=== PATIENT | female | born 1950 | race Caucasian/White ===

== ENCOUNTER 2022-03-05 16:25 | Outpatient (CLI) | payer MEDICARE, BC, SELFPAY ==
--- NOTE | 2022-03-05 16:50 | XR_ITS ---
WS: [id number] Cervical spine, 3 views, 03/05/2022 Clinical Data: M54.2 - Cervicalgia Comparison: None. Findings: No compression fractures are seen. The disc heights are normal. There is no prevertebral so ft tissue swelling. The odontoid is unremarkable. The soft tissues of the neck and the lung apices ar e normal. XR/XR cervical spine 3V* [id number] Impression: Negative cervical spine.
== END 2022-03-05 16:26 | disposition home or self-care (01) ==
PROVIDERS: PCP Nurse Practitioner Family; Visit Provider Nurse Practitioner Family
DX: M54.2 Cervicalgia (principal)
CPT/HCPCS: 72040

== ENCOUNTER → 2022-03-13 15:00 | Outpatient (BNVA) | payer MEDICARE, BC, SELFPAY | PROVIDERS: PCP Nurse Practitioner Family; Visit Provider Nurse Practitioner Family | DX: T14.8XXA Other injury of unspecified body region, initial encounter (principal); W57.XXXA Bitten or stung by nonvenomous insect and other nonvenomous arthropods, initial encounter | CPT/HCPCS: 86618; 86666; 86757 ==

== ENCOUNTER → 2022-04-12 09:46 | Outpatient (BNVA) | payer MEDICARE, BC, SELFPAY | PROVIDERS: PCP Nurse Practitioner Family; Referring Provider Nurse Practitioner Family; Visit Provider Student in an Organized Health Care Education/Training Program | DX: M19.011 Primary osteoarthritis, right shoulder (principal); M19.012 Primary osteoarthritis, left shoulder; M75.41 Impingement syndrome of right shoulder; M75.42 Impingement syndrome of left shoulder | CPT/HCPCS: 20610; 99204; J3301 ==

== ENCOUNTER → 2022-06-28 13:57 | Outpatient (BNVA) | payer MEDICARE, BC, SELFPAY | PROVIDERS: PCP Nurse Practitioner Family; Visit Provider Student in an Organized Health Care Education/Training Program | DX: M75.42 Impingement syndrome of left shoulder (principal); M75.41 Impingement syndrome of right shoulder; M19.011 Primary osteoarthritis, right shoulder; M19.012 Primary osteoarthritis, left shoulder | CPT/HCPCS: 99213 ==

== ENCOUNTER → 2022-08-30 10:42 | Outpatient (BNVA) | payer MEDICARE, BC, SELFPAY | PROVIDERS: PCP Nurse Practitioner Family; Visit Provider Nurse Practitioner Family | DX: E53.8 Deficiency of other specified B group vitamins (principal); E78.5 Hyperlipidemia, unspecified; E11.9 Type 2 diabetes mellitus without complications; D64.9 Anemia, unspecified | CPT/HCPCS: 80053; 80061; 82607; 83036; 85025 ==

== ENCOUNTER 2022-11-18 15:13 | Outpatient (CLI) | payer MEDICARE, BC, SELFPAY ==
--- NOTE | 2022-11-18 15:30 | US_ITS ---
WS: [id number] RENAL ULTRASOUND HISTORY: I10 - Essential (primary) hypertension COMPARISON: None available. TECHNIQUE: 2-D and color Doppler imaging of the kidney submitted. Right kidney: 10.2 cm x 5.1 cm x 5.0 cm. Cortex: 1.1 cm Normal echogenicity with no hydronephrosis or mass. Left kidney: 10.5 cm x 4.2 cm x 5.5 cm. Cortex: 1.1 cm Normal echogenicity with no hydronephrosis or mass. Aorta: Normal. Urinary Bladder: Normal distention. US/US renal BI* [id number] IMPRESSION: Normal renal ultrasound.
== END 2022-11-18 15:14 | disposition home or self-care (01) ==
PROVIDERS: PCP Nurse Practitioner Family; Visit Provider Nurse Practitioner Family
DX: I10 Essential (primary) hypertension (principal)
CPT/HCPCS: 76770

== ENCOUNTER → 2022-12-31 13:45 | Outpatient (BNVA) | payer MEDICARE, BC, SELFPAY | PROVIDERS: PCP Nurse Practitioner Family; Visit Provider Internal Medicine Cardiovascular Disease | DX: R79.89 Other specified abnormal findings of blood chemistry (principal); I10 Essential (primary) hypertension; E11.9 Type 2 diabetes mellitus without complications; Z79.84 Long term (current) use of oral hypoglycemic drugs | CPT/HCPCS: 99203 ==

== ENCOUNTER → 2023-01-03 09:04 | Outpatient (BNVA) | payer MEDICARE, BC, SELFPAY | PROVIDERS: PCP Nurse Practitioner Family; Visit Provider Nurse Practitioner Family | DX: R53.83 Other fatigue (principal); I10 Essential (primary) hypertension; E11.9 Type 2 diabetes mellitus without complications | CPT/HCPCS: 80053; 80061; 83036; 84443; 84481 ==

== ENCOUNTER 2023-01-31 09:14 | Outpatient (CLI) | payer MEDICARE, BC, SELFPAY ==
--- NOTE | 2023-01-31 09:20 | MM_ITS ---
WS: [id number] BILATERAL SCREENING DIGITAL TOMOSYNTHESIS MAMMOGRAM WITH CAD HISTORY: SCREEN COMPARISON: 10/15/2017 Bilateral CC and MLO views with tomosynthesis and synthetic mammography submitted. Computer aided det ection analyzed. Breast composition: There are scattered areas of fibroglandular density. No suspicious masses, microc alcifications or architectural distortion. Benign calcifications in each breast. Stable 5 mm mass in the upper outer quadrant of the LEFT breast. Probably representing a lymph node. IMPRESSION: MM/[place] [id number] BI-RADS: 2-Benign FOLLOW UP: 1 Year Follow-up
== END 2023-01-31 09:15 | disposition home or self-care (01) ==
LOC: RAD 09:15
PROVIDERS: PCP Nurse Practitioner Family; Visit Provider Nurse Practitioner Family
DX: Z12.31 Encounter for screening mammogram for malignant neoplasm of breast (principal)
CPT/HCPCS: 77063; 77067

== ENCOUNTER → 2023-02-07 08:59 | Outpatient (BNVA) | payer MEDICARE, BC, SELFPAY | PROVIDERS: PCP Nurse Practitioner Family; Visit Provider Nurse Practitioner Family | DX: N28.9 Disorder of kidney and ureter, unspecified (principal); Z87.448 Personal history of other diseases of urinary system | CPT/HCPCS: 80053 ==

== ENCOUNTER → 2023-03-17 15:54 | Outpatient (BNVA) | payer MEDICARE, BC, SELFPAY | PROVIDERS: PCP Nurse Practitioner Family; Visit Provider Nurse Practitioner Family | DX: R94.4 Abnormal results of kidney function studies (principal) | CPT/HCPCS: 80053 ==

== ENCOUNTER → 2023-04-14 13:08 | Outpatient (BNVA) | payer MEDICARE, BC, SELFPAY | PROVIDERS: PCP Nurse Practitioner Family; Visit Provider Internal Medicine Cardiovascular Disease | DX: I10 Essential (primary) hypertension (principal); F33.8 Other recurrent depressive disorders; E11.9 Type 2 diabetes mellitus without complications; Z79.84 Long term (current) use of oral hypoglycemic drugs | CPT/HCPCS: 99213 ==

== ENCOUNTER → 2023-04-18 09:17 | Outpatient (BNVA) | payer MEDICARE, BC, SELFPAY | PROVIDERS: PCP Nurse Practitioner Family; Visit Provider Nurse Practitioner Family | DX: E11.9 Type 2 diabetes mellitus without complications (principal); R53.83 Other fatigue; K21.9 Gastro-esophageal reflux disease without esophagitis | CPT/HCPCS: 80061; 83036 ==

== ENCOUNTER → 2023-07-28 17:08 | Outpatient (BNVA) | payer MEDICARE, BC, SELFPAY | PROVIDERS: PCP Nurse Practitioner Family; Visit Provider Nurse Practitioner Family | DX: E11.9 Type 2 diabetes mellitus without complications (principal); I10 Essential (primary) hypertension | CPT/HCPCS: 80053; 83036 ==

== ENCOUNTER 2023-08-08 07:39 | Outpatient (CLI) | payer MEDICARE, BC, SELFPAY ==
--- NOTE | 2023-08-08 07:42 | USCV_ITS ---
Sarah Dutton Age: 73 Gender: F : 1950 Exam Date: 08/08/2023 08:03 Ordering Phys: Gavin Boyce MD Technologist: TRIPP Exam Location: [facility] [place]_ Indication: HTN Aortic Velocity @ SMA (cm/s) 95.1 RIGHT KIDNEY LEFT KIDNEY Velocity (cm/s) Velocity (cm/s) Sys/Stafford Sys/Stafford Resistive Index Resistive Index 99.8 / 27.4 Proximal Renal Artery 152.8 / 46.7 93.2 / 31.8 Mid Renal Artery 200.7 / 48.7 93.2 / 29.6 Distal Renal Artery 99.4 / 25.3 93.2 / 28.5 Hilar 84.7 / 22.0 48.0 / 16.6 Upper Pole 38.3 / 11.4 49.5 / 11.2 Mid Pole 38.4 / 9.2 37.8 / 12.6 Lower Pole 28.5 / 9.9 1.00 Renal Aortic Ratio 2.10 Accleration Time (sec) 294.40 Hilar 369.10 251.80 Upper Pole 168.00 194.40 Mid Pole 147.70 149.40 Lower Pole 77.80 9.7 Kidney Length (cm) 9.5 FINDINGS No comparison. Normal size kidneys with mild cortical thinning.no evidence of abdominal aortic aneurysm. There is no evidence of hemodynamically significant right renal artery stenosis. There is no evidence of hemodynamically significant left renal artery stenosis. CONCLUSIONS No sonographic evidence of hemodynamically significant renal artery stenosis bilaterally. Dr. Jo Campbell DO (Electronically Signed) Final Date: 08 August 2023 08:42 S
== END 2023-08-08 07:40 | disposition home or self-care (01) ==
LOC: RAD 07:39
PROVIDERS: PCP Nurse Practitioner Family; Visit Provider Internal Medicine
DX: I12.9 Hypertensive chronic kidney disease with stage 1 through stage 4 chronic kidney disease, or unspecified chronic kidney disease (principal); N18.30 Chronic kidney disease, stage 3 unspecified; E11.22 Type 2 diabetes mellitus with diabetic chronic kidney disease
CPT/HCPCS: 93975

== ENCOUNTER → 2023-08-26 14:31 | Outpatient (BNVA) | payer MEDICARE, BC, SELFPAY | PROVIDERS: PCP Nurse Practitioner Family; Visit Provider Nurse Practitioner Family | DX: E87.1 Hypo-osmolality and hyponatremia (principal) | CPT/HCPCS: 80053 ==

== ENCOUNTER → 2023-10-10 10:51 | Outpatient (BNVA) | payer MEDICARE, BC, SELFPAY | PROVIDERS: PCP Nurse Practitioner Family; Visit Provider Podiatrist Foot & Ankle Surgery | DX: Q82.8 Other specified congenital malformations of skin; E11.9 Type 2 diabetes mellitus without complications | CPT/HCPCS: 17110; 99203 ==

== ENCOUNTER → 2023-10-13 11:49 | Outpatient (BNVA) | payer MEDICARE, BC, SELFPAY | PROVIDERS: PCP Nurse Practitioner Family; Visit Provider Internal Medicine Cardiovascular Disease | DX: I10 Essential (primary) hypertension (principal); I65.22 Occlusion and stenosis of left carotid artery; E11.9 Type 2 diabetes mellitus without complications; Z87.891 Personal history of nicotine dependence; Z79.84 Long term (current) use of oral hypoglycemic drugs | CPT/HCPCS: 99213 ==

== ENCOUNTER → 2023-10-24 09:45 | Outpatient (BNVA) | payer MEDICARE, BC, SELFPAY | PROVIDERS: PCP Nurse Practitioner Family; Visit Provider Nurse Practitioner Family | DX: D48.5 Neoplasm of uncertain behavior of skin (principal); L57.0 Actinic keratosis; L73.8 Other specified follicular disorders; L82.1 Other seborrheic keratosis; L81.4 Other melanin hyperpigmentation; L57.8 Other skin changes due to chronic exposure to nonionizing radiation | CPT/HCPCS: 11102; 17000; 99203 ==

== ENCOUNTER → 2023-12-05 11:29 | Outpatient (BNVA) | payer MEDICARE, BC, SELFPAY | PROVIDERS: PCP Nurse Practitioner Family; Visit Provider Nurse Practitioner Family | DX: I10 Essential (primary) hypertension (principal) | CPT/HCPCS: 80053; 84439; 84443 ==

== ENCOUNTER → 2024-02-24 15:37 | Outpatient (BNVA) | payer MEDICARE, BC, SELFPAY | PROVIDERS: PCP Nurse Practitioner Family; Visit Provider Nurse Practitioner Family | DX: I10 Essential (primary) hypertension (principal) | CPT/HCPCS: 93005 ==

== ENCOUNTER → 2024-02-26 08:33 | Outpatient (BNVA) | payer MEDICARE, BC, SELFPAY | PROVIDERS: PCP Nurse Practitioner Family; Visit Provider Nurse Practitioner Family | DX: I10 Essential (primary) hypertension (principal); Z87.891 Personal history of nicotine dependence | CPT/HCPCS: 99213 ==

== ENCOUNTER → 2024-03-12 08:28 | Outpatient (BNVA) | payer MEDICARE, BC, SELFPAY | PROVIDERS: PCP Nurse Practitioner Family; Visit Provider Nurse Practitioner Family | DX: I10 Essential (primary) hypertension (principal) | CPT/HCPCS: 99213 ==

== ENCOUNTER → 2024-04-12 14:22 | Outpatient (BNVA) | payer MEDICARE, BC, SELFPAY | PROVIDERS: PCP Nurse Practitioner Family; Visit Provider Internal Medicine Cardiovascular Disease | DX: R53.82 Chronic fatigue, unspecified (principal); I95.9 Hypotension, unspecified | CPT/HCPCS: 36415; 82533 ==

== ENCOUNTER → 2024-04-22 08:53 | Outpatient (BNVA) | payer MEDICARE, BC, SELFPAY | PROVIDERS: PCP Nurse Practitioner Family; Visit Provider Nurse Practitioner Family | DX: I10 Essential (primary) hypertension (principal) | CPT/HCPCS: 80053; 80061; 84443; 85025 ==

== ENCOUNTER → 2024-06-24 08:58 | Outpatient (BNVA) | payer MEDICARE, BC, SELFPAY | PROVIDERS: PCP Nurse Practitioner Family; Visit Provider Nurse Practitioner Family | DX: E53.8 Deficiency of other specified B group vitamins (principal); E07.9 Disorder of thyroid, unspecified; R94.4 Abnormal results of kidney function studies | CPT/HCPCS: 80048; 82607; 84439; 84443 ==

== ENCOUNTER → 2024-07-07 08:37 | Outpatient (BNVA) | payer MEDICARE, BC, SELFPAY | PROVIDERS: PCP Nurse Practitioner Family; Visit Provider Internal Medicine Cardiovascular Disease | DX: I10 Essential (primary) hypertension (principal); R94.4 Abnormal results of kidney function studies | CPT/HCPCS: 80048 ==

== ENCOUNTER → 2024-08-20 08:38 | Outpatient (BNVA) | payer MEDICARE, BC, SELFPAY | PROVIDERS: PCP Nurse Practitioner Family; Visit Provider Nurse Practitioner Family | DX: I10 Essential (primary) hypertension (principal); E11.9 Type 2 diabetes mellitus without complications; R53.83 Other fatigue | CPT/HCPCS: 80048; 80053; 80061; 83036; 84443; 85025 ==

== ENCOUNTER → 2024-10-27 14:52 | Outpatient (BNVA) | payer MEDICARE, BC, SELFPAY | PROVIDERS: PCP Nurse Practitioner Family; Visit Provider Internal Medicine Cardiovascular Disease | DX: I10 Essential (primary) hypertension (principal); E11.9 Type 2 diabetes mellitus without complications; N28.9 Disorder of kidney and ureter, unspecified; Z87.891 Personal history of nicotine dependence; Z79.85 Long-term (current) use of injectable non-insulin antidiabetic drugs | CPT/HCPCS: 99214 ==

== ENCOUNTER 2024-11-11 11:10 | Outpatient (CLI) | payer MEDICARE, BC, SELFPAY ==
[2024-11-11 12:45] LABS: Anion Gap 14.6 (5-19); Blood Urea Nitrogen 14 mg/dL (8-23); Calcium 9.6 mg/dL (8.5-10.5); Carbon Dioxide 26 mmol/L (22-29); Chloride 101 mmol/L (98-107); Glucose 90 mg/dL (65-115); Osmolality Calculated 284 mOsm/kg (285-295); Potassium 4.6 mmol/L (3.5-5.1); Sodium 137 mmol/L (136-145)
== END 2024-11-11 11:11 | disposition home or self-care (01) ==
LOC: LAB 11:13
PROVIDERS: PCP Nurse Practitioner Family; Visit Provider Internal Medicine Cardiovascular Disease
DX: I10 Essential (primary) hypertension (principal)
CPT/HCPCS: 36415; 80048